=== PATIENT | male | born 1995 | race Caucasian/White ===

== ENCOUNTER 2017-02-22 13:53 | Emergency (ER) | payer OTHER ==
[2017-02-22 15:36] LABS: BASOPHIL 0.3 % (0-2); EOSINOPHIL 2.6 % (0-5); HCT 43.8 % (42.0-52.0); HGB 14.8 g/dl (13.2-18.0); LYMPHOCYTE 27.6 % (15-48); MCHC 33.8 g/dL (32.0-36.0); MCV 79.8 fL (78.0-100.0); MONOCYTE 7.8 % (0-12); MPV 10.4 fL (6.0-9.5); NEUTROPHIL 61.7 % (41-80); PLT 310 K/uL (150-400); RBC 5.49 M/uL (4.70-6.00); RDW 13.2 % (11.5-14.0); WBC 6.3 K/uL (4.0-10.5)
[2017-02-22 15:53] LABS: ALBUMIN 4.8 g/dL (3.5-5.0); BILIRUBIN - TOTAL 0.2 mg/dL (0.1-1.0); GLOBULIN (CALCULATION) 2.9 g/dL (2.2-4.2); POTASSIUM 3.8 mmol/L (3.5-5.1); TOTAL PROTEIN 7.7 g/dL (6.4-8.3)
[2017-02-22 16:30] LABS: AMPHETAMINES NEGATIVE (NEGATIVE); BARBITURATES NEGATIVE (NEGATIVE); BENZODIAZEPINES NEGATIVE (NEGATIVE); COCAINE NEGATIVE (NEGATIVE); MARIJUANA (THC) NEGATIVE (NEGATIVE); METHADONE NEGATIVE (NEGATIVE); TRICYCLIC ANTIDEPRESSANT NEGATIVE (NEGATIVE)
[2017-02-22 18:36] LABS: ACETAMINOPHEN (TYLENOL) < 5.0 ug/mL (10.0-30.0); SALICYLATE < 6 ug/mL (0-300)
== END 2017-02-22 19:20 | disposition home or self-care (01) ==
LOC: FER 13:53
PROVIDERS: Internal Medicine
DX: F32.9 Major depressive disorder, single episode, unspecified (principal); F17.200 Nicotine dependence, unspecified, uncomplicated; Z88.0 Allergy status to penicillin; Z91.010 Allergy to peanuts; Z91.018 Allergy to other foods
CPT/HCPCS: 36415; 80053; 80305; 85025; 93005; G0480